=== PATIENT | male | born 2000 | race Two or more races ===

== ENCOUNTER 2024-03-11 15:26 | Emergency (ER) | payer SELFPAY | END 2024-03-11 16:28 | disposition home or self-care (01) | LOC: MW.ED 15:26 | DX: L03.317 Cellulitis of buttock (principal) | CPT/HCPCS: 99283 ==

== ENCOUNTER 2025-07-12 06:51 | Emergency (ER) | payer SELFPAY ==
[2025-07-12] MEDS ORDERED: Orphenadrine 60 MG/2 ML Inj IV ONE (07:36)
[2025-07-12] MEDS: Ketorolac 60 MG/2 ML SDV IM ONE (07:51)
[2025-07-12] MEDS: Orphenadrine 60 MG/2 ML Inj IM ONE (07:57)
== END 2025-07-12 08:57 | disposition home or self-care (01) ==
LOC: MW.ED 06:51
DX: B34.9 Viral infection, unspecified (principal); F17.200 Nicotine dependence, unspecified, uncomplicated
CPT/HCPCS: 71046; 87428; 87651; 96372; 99284; J1885; J2360; 99283